=== PATIENT | female | born 1995 | race Caucasian/White ===

== ENCOUNTER 2020-02-22 16:03 | Day surgery (SDCO) | payer OTHER ==
[2020-02-22 16:46] LABS: BILIRUBIN NEGATIVE (NEGATIVE); BLOOD NEGATIVE Ery/uL (NEGATIVE); CLARITY CLEAR (CLEAR); COLOR YELLOW (YELLOW); GLUCOSE (U) NORMAL (NORMAL); LEUKOCYTES TRACE Leu/uL (NEGATIVE); NITRITE NEGATIVE (NEGATIVE); PROTEIN NEGATIVE (NEGATIVE); SPECIFIC GRAVITY 1.025 (1.001-1.030); UROBILINOGEN 0.2 mg/dL (0.2-1.0); pH 7.5 (5.0-9.0)
[2020-02-22 16:48] LABS: BACTERIA TRACE
[2020-02-22 16:49] LABS: SQUAMOUS EPITHELIAL CELLS >50
== END 2020-02-23 15:37 | disposition home or self-care (01) ==
LOC: FOD 16:03 → FOB 16:11 → FOD 20:43 → FOB 20:48
PROVIDERS: ADMIT Obstetrics & Gynecology
DX: O47.1 False labor at or after 37 completed weeks of gestation (principal); O99.891 Other specified diseases and conditions complicating pregnancy; M54.5 Low back pain; R12 Heartburn; O43.193 Other malformation of placenta, third trimester; O09.213 Supervision of pregnancy with history of pre-term labor, third trimester; O99.343 Other mental disorders complicating pregnancy, third trimester; F31.9 Bipolar disorder, unspecified; O99.353 Diseases of the nervous system complicating pregnancy, third trimester; G43.909 Migraine, unspecified, not intractable, without status migrainosus; O99.513 Diseases of the respiratory system complicating pregnancy, third trimester; J45.909 Unspecified asthma, uncomplicated; O99.013 Anemia complicating pregnancy, third trimester; D64.9 Anemia, unspecified; O99.213 Obesity complicating pregnancy, third trimester; E66.9 Obesity, unspecified; O99.613 Diseases of the digestive system complicating pregnancy, third trimester; K58.9 Irritable bowel syndrome, unspecified; Z3A.38 38 weeks gestation of pregnancy; Z67.41 Type O blood, Rh negative; Z91.5 Personal history of self-harm; Z79.82 Long term (current) use of aspirin; Z79.899 Other long term (current) drug therapy; Z88.5 Allergy status to narcotic agent; Z20.822 Contact with and (suspected) exposure to COVID-19
CPT/HCPCS: 81001; 84112; G0378; J2270; J7120; U0002

== ENCOUNTER 2020-02-29 05:10 | Inpatient (IN) | payer OTHER ==
[2020-02-29 05:54] LABS: BILIRUBIN 1+ mg/dL (NEGATIVE); BLOOD NEGATIVE Ery/uL (NEGATIVE); CLARITY CLEAR (CLEAR); COLOR YELLOW (YELLOW); GLUCOSE (U) NORMAL (NORMAL); LEUKOCYTES NEGATIVE Leu/uL (NEGATIVE); NITRITE NEGATIVE (NEGATIVE); PROTEIN 1+ mg/dL (NEGATIVE); SPECIFIC GRAVITY >=1.030 (1.001-1.030); UROBILINOGEN 0.2 mg/dL (0.2-1.0); pH 6.5 (5.0-9.0)
[2020-02-29 05:55] LABS: HGB 11.3 g/dl (12.5-16.0); MCH 28.7 pg (25.0-31.0); MCHC 32.3 g/dL (32.0-36.0); MCV 88.8 fL (78.0-100.0); MPV 10.2 fL (6.0-9.5); RBC 3.94 M/uL (4.20-5.40); WBC 7.9 K/uL (4.0-10.5)
[2020-02-29 06:03] LABS: BACTERIA 1+; CALCIUM OXALATE CRYSTALS MODERATE; MUCOUS MODERATE; SQUAMOUS EPITHELIAL CELLS 20-50; URINARY WBC RARE
[2020-03-01 06:00] LABS: HCT 27.7 % (37.0-47.0); HGB 8.4 g/dl (12.5-16.0); MCH 27.8 pg (25.0-31.0); MCHC 30.3 g/dL (32.0-36.0); MCV 91.7 fL (78.0-100.0); MPV 10.9 fL (6.0-9.5); RBC 3.02 M/uL (4.20-5.40); RDW 16.2 % (11.5-14.0); WBC 9.2 K/uL (4.0-10.5)
== END 2020-03-02 18:16 | disposition home or self-care (01) | DRG 806 ==
LOC: FOB 05:10
PROVIDERS: ADMIT Obstetrics & Gynecology
PROC: 10E0XZZ Delivery of Products of Conception, External Approach (ICD-10-PCS; principal; 2020-02-29)
PROC: 0KQM0ZZ Repair Perineum Muscle, Open Approach (ICD-10-PCS; 2020-02-29)
PROC: 4A1HX4Z Monitoring of Products of Conception, Cardiac Electrical Activity, External Approach (ICD-10-PCS; 2020-02-29)
DX: O66.0 Obstructed labor due to shoulder dystocia (principal); D62 Acute posthemorrhagic anemia; Z37.0 Single live birth; O99.214 Obesity complicating childbirth; E66.9 Obesity, unspecified; O43.193 Other malformation of placenta, third trimester; Z3A.39 39 weeks gestation of pregnancy; O26.893 Other specified pregnancy related conditions, third trimester; Z67.41 Type O blood, Rh negative; O70.1 Second degree perineal laceration during delivery; O99.03 Anemia complicating the puerperium; D50.9 Iron deficiency anemia, unspecified; Z79.899 Other long term (current) drug therapy; O99.344 Other mental disorders complicating childbirth; F31.9 Bipolar disorder, unspecified; Z20.822 Contact with and (suspected) exposure to COVID-19
CPT/HCPCS: 36415; 81001; J2405; J2916; J7120; U0002